=== PATIENT | female | born 1985 | race African-American/Black ===

== ENCOUNTER 2023-09-28 18:20 | Emergency (ER) | payer MEDICAID, OTHER ==
[~2023-09-28] VITALS: Ht 154.9 cm; Wt 56.8 kg
[2023-09-28 18:44] VITALS: TEMP 98.2
[2023-09-28] MEDS ORDERED: METF-1211 PO ×3 (18:48)
[2023-09-28] MEDS ORDERED: cholesterol PO (18:48)
[2023-09-28 19:38] LABS: MONOCYTES # (AUTO) 0.3 K/uL (0.1-1.0); MONOCYTES % (AUTO) 2.8 % (2.0-9.0)
[2023-09-28 19:42] LABS: BASOPHILS % (AUTO) 0.6 % (0.0-2.0); EOSINOPHILS % (AUTO) 0.1 % (1.0-6.0); HEMATOCRIT 45.2 % (36-46); LYMPHOCYTES % (AUTO) 9.8 % (22.0-44.0); MEAN CORPUSCULAR HEMOGLOBIN 29.1 pg (26.0-34.0); MEAN CORPUSCULAR HGB CONC 33.1 G/dL (31.0-37.0); MEAN CORPUSCULAR VOLUME 88 fL (80-100); NEUTROPHILS # (AUTO) 8.8 K/uL (1.8-7.7); PLATELET COUNT (AUTO) 347 K/uL (150-450); RED BLOOD CELL COUNT(AUTO) 5.15 MIL/uL (4.00-5.20); RED CELL DISTRIBUTION WIDTH 13.7 % (11.5-14.5); WHITE BLOOD COUNT (AUTO) 10.2 K/uL (4.5-11.0)
[2023-09-28 19:46] LABS: NEUTROPHILS % (AUTO) 86.7 % (40.0-70.0)
[2023-09-28 19:48] LABS: ANION GAP 19 mmol/L (8-16); CALCIUM, TOTAL 10.3 mg/dL (8.8-10.5); CARBON DIOXIDE 26 mmol/L (22-29); CHLORIDE 104 mmol/L (98-107); CREATININE 1.08 mg/dL (0.60-1.30); GLOMERULAR FILTR. RATE CALC > 60 mL/min (>60); GLUCOSE,RANDOM 294 mg/dL (70-110); POTASSIUM 3.8 mmol/L (3.5-5.1); SODIUM SERUM 149 mmol/L (136-145); UREA NITROGEN, BLOOD 20 mg/dL (7-18)
[2023-09-28 19:58] LABS: HCG,QUANTITATIVE 1 mIU/mL (0-6); LIPASE 73 U/L (16-77)
[2023-09-28 21:00] VITALS: BP 129/89; PULSE 115; RESP 20
[2023-09-28] MEDS: SODIUM CHLORIDE 0.9% 1,000 ML IV ONE (21:19)
[2023-09-28] MEDS: INSULIN REGULAR, HUMAN 100 UNITS/ML IVP ONE (21:35)
[2023-09-28] MEDS ORDERED: ONDA-104 PO (23:25)
[2023-09-29 00:26] LABS: GLUCOMETER DEV NAME(LOC) ERT.5; GLUCOSE,POINT OF CARE 178 MG/DL (70-110)
== END 2023-09-28 23:54 | disposition home or self-care (01) ==
LOC: EMS 18:20
DX: R11.2 Nausea with vomiting, unspecified (principal); E11.65 Type 2 diabetes mellitus with hyperglycemia
CPT/HCPCS: 99283; 96374; 96361; 80048; 82962 ×2; 83690; 84702; 85025; 36415; J7030

== ENCOUNTER 2024-10-01 20:44 | Emergency (ER) | payer OTHER ==
[~2024-10-01] VITALS: Ht 144.8 cm; Wt 45.0 kg
[~2024-10-01 20:44] MED LIST: INSU100I26 SQ; METF-1211 PO; ONDA-104 PO; SEMA14TA2 PO; cholesterol PO
[2024-10-01 20:49] VITALS: BP 108/83; PULSE 127; RESP 16; TEMP 98.1; O2SAT 98
[2024-10-01 21:16] LABS: GLUCOMETER DEV NAME(LOC) ER.7; GLUCOSE,POINT OF CARE 248 MG/DL (70-110)
[2024-10-01 21:32] LABS: PLATELET COUNT (AUTO) 324 K/uL (150-450); RED BLOOD CELL COUNT(AUTO) 5.28 MIL/uL (4.00-5.20); RED CELL DISTRIBUTION WIDTH 13.4 % (11.5-14.5); WHITE BLOOD COUNT (AUTO) 10.0 K/uL (4.5-11.0)
[2024-10-01 21:35] LABS: APPEARANCE,URINE CLEAR (CLEAR); GLUCOSE, URINE (UA) >=1000 mg/dL (NEGATIVE); LEUKOCYTE ESTERASE ,URINE NEGATIVE (NEGATIVE); NITRATE,URINE NEGATIVE (NEGATIVE); OCCULT BLOOD,URINE TRACE (NEGATIVE); SPECIFIC GRAVITIY, URINE 1.022 (1.003-1.030)
[2024-10-01 21:39] LABS: CALCIUM, TOTAL 9.5 mg/dL (8.8-10.5); CREATININE 0.90 mg/dL (0.60-1.30); GLOMERULAR FILTR. RATE CALC > 60 mL/min (>60); GLUCOSE,RANDOM 241 mg/dL (70-110); SODIUM SERUM 144 mmol/L (136-145); UREA NITROGEN, BLOOD 15 mg/dL (7-18)
[2024-10-01 21:46] LABS: PLATELET MORPHOLOGY COMMENT LARGE PLTS PRESENT; RBC MORPHOLOGY COMMENT NORMAL RBC MORPH
[2024-10-01 21:48] LABS: SQUAMOUS EPITHELIAL CELL,UR Few /LPF (None Seen)
[2024-10-01 21:54] LABS: HCG,QUANTITATIVE 1 mIU/mL (0-6)
[2024-10-01 22:01] LABS: ASPARTATE AMINOTRANSFERASE 20.0 U/L (15-37); TOTAL PROTEIN, SERUM 8.1 g/dL (6.4-8.2)
[2024-10-01] MEDS: MORPHINE SULFATE 4 MG/ML SYRINGE IVP ONE (22:24)
[2024-10-01] MEDS: METOCLOPRAMIDE HCL 5 MG/ML 2 ML VIAL IVP ONE (22:25)
[2024-10-01] MEDS: ACETAMINOPHEN 500 MG TABLET PO ONE (23:15)
[2024-10-01] MEDS ORDERED: METO5TAB95 PO (23:31)
== END 2024-10-02 00:04 | disposition home or self-care (01) ==
LOC: EMS 20:44
DX: R10.13 Epigastric pain (principal); R11.2 Nausea with vomiting, unspecified; E11.9 Type 2 diabetes mellitus without complications; E78.00 Pure hypercholesterolemia, unspecified; Z79.899 Other long term (current) drug therapy
CPT/HCPCS: 99284; 96374; 96375; 80048; 80076; 81001; 82962; 83690; 84702; 85025; 36415; J2765; J2270